=== PATIENT | male | born 1995 ===

== ENCOUNTER 2019-04-27 02:17 | Outpatient (CLI) | payer BC, SELFPAY ==
--- NOTE | 2019-04-27 15:41 | DI.RAD_ITS ---
EXAM: XR CERVICAL SPINE COMP 4-5V INDICATION: NECK PAIN M54.2. COMPARISON: No exams were available for comparison TECHNIQUE: 2D digital imaging was performed. FINDINGS: There is straightening of the normal cervical lordosis. The disc spaces are well maintained. No ne ural foraminal narrowing is seen. There is no prevertebral soft tissue swelling. IMPRESSION: Straightening of the normal cervical lordosis. No significant degenerative changes.
== END 2019-04-27 02:37 ==
PROVIDERS: Visit Provider Nurse Practitioner Family
DX: M54.2 Cervicalgia (principal)
CPT/HCPCS: 72050

== ENCOUNTER 2019-06-20 15:07 | Outpatient (REF) | payer BC, SELFPAY ==
[2019-06-20 22:22] LABS: Absolute Basophil Count 0.02 k/cumm (0.0-0.2); Absolute Eosinophil Count 0.05 k/cumm (0.0-0.7); Absolute Lymphocyte Count 0.92 k/cumm (1.2-3.4); Absolute Monocyte Count 0.27 k/cumm (0.11-0.7); Basophils % 0.5; Eosinophils % 1.4; HCT 43.3 % (40.0-50.0); HGB 15.3 g/dL (13.5-17.5); Lymphocytes % 25.1; Mean Corp. HGB Concentration 35.3 g/dL (32.0-36.0); Mean Corpuscular Hemoglobin 31.5 pg (27.0-33.0); Mean Corpuscular Volume 89.1 fL (80-95); Mean Platelet Volume 11.8 fL (8.0-11.0); Monocytes % 7.4; Neutrophils % 65.6; Platelet Count 192 x1000/uL (130-400); RBC 4.86 m/cumm (4.50-6.00); RBC Distribution Width 12.3 % (11.8-14.1); White Blood Cell Count 3.66 k/cumm (4.4-10.8)
[2019-06-20 23:05] LABS: ALT 31 U/L (16-63); AST 22 U/L (15-37); Albumin 4.6 g/dL (3.4-5.0); Alkaline Phosphatase 70 U/L (46-116); Anion Gap 10.2 mmol/L (3-11); BUN 22 mg/dL (7-18); Bilirubin, Total 0.3 mg/dL (0.2-1.0); CO2 29.8 mmol/L (21.0-32.0); CREATININE 0.96 mg/dL (0.70-1.30); Calcium 9.3 mg/dL (8.5-10.1); Chloride 102 mmol/L (98-107); Glucose 93 mg/dL (74-106); Potassium 3.8 mmol/L (3.5-5.1); Sodium 142 mmol/L (136-145); TSH (W/Ref FT4) 5.21 uIU/mL (0.36-3.74); Total Protein 8.2 g/dL (6.4-8.2); Vitamin B12 393 pg/mL (193-986)
[2019-06-20 23:30] LABS: FREE T4 0.89 ng/dL (0.76-1.46)
== END 2019-06-20 15:27 ==
LOC: NCHCN 15:07
PROVIDERS: PCP Nurse Practitioner Family; Visit Provider Nurse Practitioner Family
DX: F41.1 Generalized anxiety disorder (principal); Z91.49 Other personal history of psychological trauma, not elsewhere classified
CPT/HCPCS: 80053; 82607; 84439; 84443; 85025